=== PATIENT | male | born 1970 | race Caucasian/White ===

== ENCOUNTER 2017-01-01 18:41 | Emergency (ER) | payer BC ==
[2017-01-01 18:49] VITALS: BP 127/78
--- NOTE | 2017-01-01 19:14 | EDM.PDOC ---
ED HPI ENT - General Chief Complaint: ENT Problem Stated Complaint: SORE THROAT Time Seen by Provider: 01/01/17 18:54 Source of Information: Reports: Patient, RN notes reviewed - History of Present Illness INITIAL COMMENTS - FREE TEXT/NARRATIVE: onset of severe sore throat about 3 days ago, much worse today, painful to swallow. not congested. Occasional nonprod cough. No known fever. was ill with similar sx last week. - Related Data Allergies/ADRs: Allergies Allergy/AdvReac Type Severity Reaction Status Date / Time No Known Allergies Allergy Verified 01/01/17 18:50 Home Meds: Home Meds Cephalexin 500 mg PO Q6HR #30 capsule 01/01/17 [Rx] Hydrocodone/Acetaminophen [Arthur 5-325] 1 tab PO Q4HR PRN #10 tablet 01/01/17 [ Rx] Pantoprazole Sodium [Protonix] 20 mg PO ASDIRECTED PRN 01/01/17 [History] Past Medical History Gastrointestinal History: Reports: GERD Social & Family History - Tobacco Use Smoking Status *Q: Never Smoker - Caffeine Use Caffeine Use: Reports: Coffee, Soda - Recreational Drug Use Recreational Drug Use: No ED ROS ENT - Review of Systems Review Of Systems: See Below Constitutional: Denies: fever, chills HEENT: Reports: Throat pain. Denies: Rhinitis, Sinus problem Respiratory: Reports: Cough. Denies: Shortness of Breath, Sputum Cardiovascular: Denies: Chest pain GI/Abdominal: Denies: Abdominal pain, Nausea, Vomiting Musculoskeletal: Reports: no symptoms Skin: Reports: no symptoms Neurological: Reports: No Symptoms ED EXAM, ENT - Physical Exam Exam: See Below General Appearance: alert, mild distress Eye Exam: bilateral eye: PERRL Ears: normal external exam, normal TMs Nose: normal inspection Mouth/Throat: Pharyngeal erythema. No: Tonsillar exudates, Tonsillar swelling Head: No: facial swelling Neck: supple, full range of motion, lymphadenopathy (L), lymphadenopathy (R) Cardiovascular: regular rate, rhythm Extremities: normal inspection, normal range of motion Neurological: alert, oriented, no motor/sensory deficits Skin: Warm, Dry, Normal color Course - Vital Signs Last Recorded V/S: Last Vital Signs Temp 97.6 F 01/01/17 18:47 Pulse 79 01/01/17 18:47 Resp 20 01/01/17 18:47 BP 127/78 04/22/17 18:47 Pulse Ox 98 01/01/17 18:47 Departure - Departure Time of Disposition: 19:15 Disposition: Home, Self-Care 01 Condition: fair Clinical Impression: Strep throat Prescriptions: Hydrocodone/Acetaminophen [Arthur 5-325] 1 tab PO Q4HR PRN #10 tablet PRN Reason: Pain Cephalexin 500 mg PO Q6HR #30 capsule Referrals: Rebeca White TIMBER FALLER [Primary Care Provider] - Forms: ED Department Discharge Additional Instructions: cephalexin antibiotic as prescribed, tylenol or ibuprofen as needed during the day for discomfort, hydrocodone as needed for severe pain, do not drive or work when taking hydrocodone, follow up clinic as needed
== END 2017-01-01 19:27 | disposition home or self-care (01) ==
LOC: JD.ED 18:41
DX: J02.0 Streptococcal pharyngitis (principal); K21.9 Gastro-esophageal reflux disease without esophagitis
CPT/HCPCS: 99282; 99283

== ENCOUNTER 2017-07-07 21:18 | Emergency (ER) | payer BC ==
[2017-07-07 21:26] VITALS: BP 143/93
[2017-07-07] MEDS ORDERED: Acyclovir 200 MG Cap PO ONE (21:42)
[2017-07-07] MEDS ORDERED: Ketorolac 60 MG/2 ML SDV IM ONE (21:46)
--- NOTE | 2017-07-07 21:57 | EDM.PDOC ---
ED HPI GENERAL MEDICAL PROBLEM - General Chief Complaint: Skin Complaint Stated Complaint: Rash on head Time Seen by Provider: 07/07/17 21:20 Source of Information: Reports: Patient, RN Notes Reviewed History Limitations: Reports: No Limitations - History of Present Illness INITIAL COMMENTS - FREE TEXT/NARRATIVE: 47 year old male presents to the ED with complaints of neck stiffness and pain with associated rash to his scalp. Symptoms started last night and he describes his scalp as "on fire." He says his noted blistering on the left side of his head where he was experiencing pain. He has a history of psoriasis to his scalp but says this is different. His skin is sensitive to touch. He describes body aches but no fever or chills. No chest pain, abdominal pain, nausea, vomiting or diarrhea. He reports a headache with no vision changes, dizziness, change in speech, weakness in extremities. Head Pain Score (Numeric/FACES): 6 - Related Data Allergies Allergy/AdvReac Type Severity Reaction Status Date / Time No Known Allergies Allergy Verified 01/01/17 18:50 Home Meds: Home Meds Pantoprazole Sodium [Protonix] 20 mg PO ASDIRECTED PRN 01/01/17 [History] valACYclovir [Valtrex] 1,000 mg PO Q8H #28 tab 07/07/17 [Rx] Past Medical History Gastrointestinal History: Reports: GERD - Past Surgical History GI Surgical History: Reports: Hernia, Abdominal Other GI Surgeries/Procedures: repair of the hernia; anal fissure Social & Family History - Tobacco Use Smoking Status *Q: Never Smoker - Caffeine Use Caffeine Use: Reports: Coffee, Soda - Recreational Drug Use Recreational Drug Use: No ED ROS GENERAL - Review of Systems Review Of Systems: See Below Constitutional: Reports: Malaise. Denies: Fever, Chills HEENT: Reports: No Symptoms. Denies: Eye Discharge, Eye Pain, Sinus Problem, Vertigo, Vision Change Respiratory: Reports: No Symptoms. Denies: Shortness of Breath Cardiovascular: Reports: No Symptoms. Denies: Chest Pain GI/Abdominal: Reports: No Symptoms. Denies: Abdominal Pain, Diarrhea, Nausea, Vomiting Skin: Reports: Rash Neurological: Reports: Headache. Denies: Paresthesia, Trouble Speaking, Difficulty Walking, Weakness ED EXAM, SKIN/RASH Exam: See Below Exam Limited By: No Limitations General Appearance: Alert, WD/WN, Mild Distress Eye Exam: Bilateral Eye: EOMI, PERRL Ears: Normal External Exam, Normal Canal, Hearing Grossly Normal, Normal TMs Nose: Normal Inspection, Normal Mucosa Throat/Mouth: Normal Inspection, Normal Oropharynx, No Airway Compromise Head: Other (zoster type rash to left parietal region. The area is mildy swollen and is tender to light palpation. ) Neck: Normal Inspection, Supple, Non-Tender, Full Range of Motion, Tender Lateral (left side), Other (no nuchal rigidity. ). No: Lymphadenopathy (L), Lymphadenopathy (R), Tender Midline Respiratory/Chest: No Respiratory Distress, Lungs Clear, Normal Breath Sounds, No Accessory Muscle Use, Chest Non-Tender Cardiovascular: Regular Rate, Rhythm GI/Abdominal: Normal Bowel Sounds, Soft, Non-Tender Neurological: Alert, Oriented, Normal Cognition, Normal Gait, No Motor/Sensory Deficits Skin: Warm, Dry, Zoster-Like Rash (left parital region ) Course - Vital Signs Last Recorded V/S: Last Vital Signs Temp 97.1 F 07/07/17 21:25 Pulse 73 07/07/17 21:25 Resp 20 07/07/17 21:25 BP 143/93 H 07/07/17 21:25 Pulse Ox 97 07/07/17 21:25 - Orders/Labs/Meds Meds: Medications Discontinued Medications Generic Name Dose Route Start Last Admin Trade Name Freq PRN Reason Stop Dose Admin Acyclovir 1,000 mg 07/07/17 21:42 Zovirax PO 07/07/17 21:43 ONETIME ONE Acyclovir 800 mg 07/07/17 21:45 Zovirax PO 07/07/17 21:46 ONETIME ONE Ketorolac Tromethamine 60 mg 07/07/17 21:46 Toradol IM 07/07/17 21:47 ONETIME ONE Valacyclovir HCl 1,000 mg 07/07/17 21:58 Valtrex PO 07/07/17 21:59 ONETIME ONE - Re-Assessments/Exams Free Text/Narrative Re-Assessment/Exam: Discussed history and physical exam with Dr. Conteh who agrees with diagnosis of herpes zoster. Patient was given first dose of Valacyclovir in the ED as the pharmacies are closing. He will be started on 1000mg TID x7 days. Rx for Percocet 1-2 tabs every 4-6 hours PRN #20 and Zofran 4mg ODT every 8 hours as needed for nausea were [facility] the [facility]. I also faxed a prescription for topical zosters compound (Gabapentin 6%, Lidocaine 5%, clonidine 0.2%, and Deoxy -d-glucose 0.2%) to [facility]. Patient was instructed to f/u with his PCP Lyssa White next week for recheck. Departure - Departure Time of Disposition: 21:48 Disposition: Home, Self-Care 01 Condition: Good Clinical Impression: Shingles Qualifiers: Herpes zoster complications: without complications Qualified Code(s): B02.9 - Zoster without complications - Discharge Information Prescriptions: valACYclovir [Valtrex] 1,000 mg PO Q8H #28 tab Referrals: Rebeca White, ENGRAVER AUTOMATIC [Primary Care Provider] - Forms: ED Department Discharge Additional Instructions: Valacyclovir 1000mg every 8 hours for a total of 7 days Percocet 1-2 tabs every 4-6 hours as needed for pain No driving for at least 6-8 hours after taking Percocet. Topical cream from [facility] as directed. Order was faxed. Stop in tomorrow or they will call you. Zofran 4mg every 8 hours as needed for nausea Follow-up with your primary care provider next week
[2017-07-07] MEDS ORDERED: valACYclovir 1,000 MG Tab PO ONE (21:58)
[2017-07-07] MEDS ORDERED: valACYclovir 500 MG Tab ONE (22:16)
== END 2017-07-07 22:25 | disposition home or self-care (01) ==
LOC: JD.ED 21:18
DX: B02.9 Zoster without complications (principal)
CPT/HCPCS: 96372; 99282; A9270; J1885

== ENCOUNTER 2017-07-09 08:57 | Emergency (ER) | payer BC ==
[2017-07-09 09:09] VITALS: BP 127/95
[2017-07-09] MEDS ORDERED: Gabapentin 300 MG Cap PO ONE (09:25)
--- NOTE | 2017-07-09 09:36 | EDM.PDOC ---
ED HPI GENERAL MEDICAL PROBLEM - General Chief Complaint: Skin Complaint Stated Complaint: DX OF SHINGLES - GETTING WORSE Time Seen by Provider: 07/09/17 09:07 Source of Information: Reports: Patient, Old Records, RN Notes Reviewed History Limitations: Reports: No Limitations - History of Present Illness INITIAL COMMENTS - FREE TEXT/NARRATIVE: The patient states that he developed pain to his posterior left neck and scalp Tuesday night, 07/06/2017. He developed a vesicular rash shortly thereafter. He was seen in this ED the following evening, 07/07/2017, and diagnosed with herpes zoster. He was started on valacyclovir (and, according to the medical records, acyclovir), then discharged home with prescriptions for valacyclovir 1 g TID x 7 d. Prescriptions for Percocet #20 and Zofran 4 mg ODT per [facility] were given. A prescription for topical zosters compound (gabapentin 6%, lidocaine 5%, clonidine 0.2%, and [id number] 0.2%) was faxed to [facility]. The patient was instructed to follow-up with his PCP, Rebeca White, this coming week. The patient now returns because of left eye pain. He states that the Percocet and topical zoster compound have not helped his pain, and he is concerned that his left eye may be affected. He states that the pain is bad enough that he cannot sleep. He states that he expects to follow-up with Rebeca White on 07/11/2017. Left Head Pain Score (Numeric/FACES): 7 - Related Data Allergies Allergy/AdvReac Type Severity Reaction Status Date / Time No Known Allergies Allergy Verified 07/09/17 09:02 Home Meds: Home Meds Pantoprazole Sodium [Protonix] 20 mg PO ASDIRECTED PRN 01/01/17 [History] valACYclovir [Valtrex] 1,000 mg PO Q8H #28 tab 07/07/17 [Rx] Gabapentin [Neurontin] 300 mg PO ASDIRECTED #11 cap 07/09/17 [Rx] Zolpidem Tartrate [Ambien Cr] 12.5 mg PO BEDTIME PRN #3 tab.mphase 07/09/17 [Rx] oxyCODONE HCl/Acetaminophen [Percocet 5-325 mg Tablet] 1 tab PO ASDIRECTED 07/09 [History] Past Medical History Other HEENT History: wears glasses for reading Gastrointestinal History: Reports: GERD - Infectious Disease History Infectious Disease History: Reports: Chicken Pox, Shingles - Past Surgical History HEENT Surgical History: Reports: Oral Surgery ([place] teeth extraction) GI Surgical History: Reports: Hernia, Abdominal (umbilical), Other (See Below) ( Anal fissure repair) Musculoskeletal Surgical History: Reports: ORIF (right forearm, bilateral ankles ) Social & Family History - Tobacco Use Smoking Status *Q: Never Smoker Second Hand Smoke Exposure: No - Caffeine Use Caffeine Use: Reports: Coffee, Soda - Alcohol Use Alcohol Use History: Yes Alcohol Use Frequency: Rarely - Recreational Drug Use Recreational Drug Use: No - Living Situation & Occupation Living situation: Reports: , with Spouse, with Family (3 kids) 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) ED ROS GENERAL - Review of Systems Review Of Systems: See Below Constitutional: Reports: No Symptoms HEENT: Reports: No Symptoms Respiratory: Reports: No Symptoms Cardiovascular: Reports: No Symptoms Endocrine: Reports: No Symptoms GI/Abdominal: Reports: No Symptoms : Reports: No Symptoms Musculoskeletal: Reports: No Symptoms Skin: Reports: No Symptoms Neurological: Reports: No Symptoms Psychiatric: Reports: No Symptoms Hematologic/Lymphatic: Reports: No Symptoms Immunologic: Reports: No Symptoms ED EXAM, SKIN/RASH Exam: See Below Exam Limited By: No Limitations General Appearance: Alert, WD/WN, Mild Distress (Appears uncomfortable) Eye Exam: Bilateral Eye: EOMI, Normal Inspection, PERRL Ears: Normal External Exam, Hearing Grossly Normal Nose: Normal Inspection, No Blood Throat/Mouth: Normal Inspection, Normal Lips, Normal Voice, No Airway Compromise Head: Atraumatic, Other (Vesicular rash involving the left occipital nerve distribution only. There is no extension into the left ophthalmic nerve distribution.) Neck: Supple, Full Range of Motion Course - Vital Signs Last Recorded V/S: Last Vital Signs Temp 36.2 C 07/09/17 09:04 Pulse 61 07/09/17 09:04 Resp 12 07/09/17 09:04 BP 127/95 H 07/09/17 09:04 Pulse Ox 99 07/09/17 09:04 - Orders/Labs/Meds Meds: Medications Discontinued Medications Generic Name Dose Route Start Last Admin Trade Name Freq PRN Reason Stop Dose Admin Gabapentin 300 mg 07/09/17 09:25 07/09/17 09:53 Neurontin PO 07/09/17 09:26 300 mg ONETIME ONE Administration - Re-Assessments/Exams Free Text/Narrative Re-Assessment/Exam: 07/09/17 09:26 The patient appears to have herpes zoster affecting his left occipital nerve distribution, and while he is complaining of left eye pain, there does not appear to be any involvement of the opthalmic branch of the trigeminal nerve, therefore the patient is not at risk for herpes zoster ophthalmicus. When seen on 07/07/2017, the patient was prescribed valacyclovir 1 g TID x 7 days, Percocet, Zofran, and topical zoster compound, which includes gabapentin, lidocaine, clonidine, and [id number]. While oral valacyclovir is the mainstay of treatment, the topical zoster compound has not been shown to be of benefit. Instead, I would recommend the patient be on oral gabapentin. I will start him on 300 mg today, and prescribed 300 BID tomorrow, then 300 TID thereafter. I can prescribe the patient additional Percocet, however, as the patient has already discovered, opioids generally do not treat neuropathic pain well. In addition, the patient requested something for sleep. I will prescribe some Ambien XR. The patient will be following up with his PCP, Rebeca White, on Tuesday, 2016. Departure - Departure Time of Disposition: 09:36 Disposition: Home, Self-Care 01 Condition: Good Clinical Impression: Herpes zoster Qualifiers: Herpes zoster complications: without complications Qualified Code(s): B02.9 - Zoster without complications - Discharge Information Prescriptions: Gabapentin [Neurontin] 300 mg PO ASDIRECTED #11 cap Zolpidem Tartrate [Ambien Cr] 12.5 mg PO BEDTIME PRN #3 tab.mphase PRN Reason: Insomnia Instructions: Shingles, [id number] Referrals: Rebeca White APPLICATION PERFORMANCE ENGINEER [Primary Care Provider] - Forms: ED Department Discharge Additional Instructions: You were seen in the emergency room for pain in your left eye associated with left-sided scalp shingles. Your shingles involves your left occipital nerve, not the ophthalmic branch of the trigeminal nerve, which would affect your eye. You have been started on the nerve-pain medicine gabapentin. You only take the one dose today, but take one tablet twice a day tomorrow, 07/10/2017, then 1 tablet 3 times a day starting on 07/11/2017. You have been prescribed the sleep medicine Ambien CR. Take one tablet at bedtime, as needed for insomnia. Be aware that you may still be groggy in the morning, and should not drive until you are feeling fully refreshed. Follow-up with your PCP, Rebeca White, at the next available appointment. If any other problems, please do not hesitate to return to the ER.
== END 2017-07-09 10:10 | disposition home or self-care (01) ==
LOC: JD.ED 08:57
DX: B02.9 Zoster without complications (principal); K21.9 Gastro-esophageal reflux disease without esophagitis; Z98.890 Other specified postprocedural states
CPT/HCPCS: 99284; A9270; 99283

== ENCOUNTER 2018-11-18 10:30 | Emergency (ER) | payer BC ==
[2018-11-18 10:41] VITALS: BP 115/86
--- NOTE | 2018-11-18 11:09 | EDM.PDOC ---
ED HPI GENERAL MEDICAL PROBLEM - General Chief Complaint: Upper Extremity Injury/Pain Stated Complaint: LT ARM INJURY Time Seen by Provider: 11/18/18 11:06 Source of Information: Reports: Patient, RN Notes Reviewed History Limitations: Reports: No Limitations - History of Present Illness INITIAL COMMENTS - FREE TEXT/NARRATIVE: Patient is a 48-year-old male who presents to the ED today for the evaluation of a left arm injury. He states he was at a local high school sporting event when he was at the top of the bleachers and tripped on the bleachers, because a garbage can was in the way and he took a fall. He states that his left arm was outstretched behind him and got caught and the bleacher railing. His pain is mostly in his upper left forearm and it is aggravated by supination/pronation and lateral hand movement. He can still make a fist but there is pain in that area when he does this. He would rate his pain at an 8 out of 10. He denies any numbness or tingling in this arm, he further denies any pain into his left shoulder. He states that he did not take any pain medications for this as the accident happened directly before coming to ED. He denies hitting his head or any loss of consciousness. He denies pain anywhere else in his body, due to the fall. Left Lower Arm Pain Score (Numeric/FACES): 8 - Related Data Allergies Allergy/AdvReac Type Severity Reaction Status Date / Time No Known Allergies Allergy Verified 07/09/17 09:02 Home Meds: Home Meds Pantoprazole Sodium [Protonix] 20 mg PO ASDIRECTED 01/01/17 [History] Naproxen [Naprosyn] 500 mg PO Q12HR #30 tab 11/18/18 [Rx] Past Medical History Other HEENT History: wears glasses for reading Gastrointestinal History: Reports: GERD - Infectious Disease History Infectious Disease History: Reports: Chicken Pox, Shingles - Past Surgical History HEENT Surgical History: Reports: Oral Surgery ([place] teeth extraction) GI Surgical History: Reports: Hernia, Abdominal (umbilical), Other (See Below) ( Anal fissure repair) Musculoskeletal Surgical History: Reports: ORIF (right forearm, bilateral ankles ) Social & Family History - Tobacco Use Smoking Status *Q: Never Smoker - Caffeine Use Caffeine Use: Reports: Coffee - Recreational Drug Use Recreational Drug Use: No - Living Situation & Occupation Living situation: Reports: , with Spouse, with Family (3 kids) 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 Denies: Joint Pain, Joint Swelling Skin: Reports: No Symptoms Neurological: Denies: Numbness, Tingling Psychiatric: Reports: No Symptoms ED EXAM, GENERAL - Physical Exam Exam: See Below Exam Limited By: No Limitations General Appearance: Alert, WD/WN, No Apparent Distress Eye Exam: Bilateral Eye: EOMI, Normal Inspection, PERRL Ears: Normal External Exam Nose: Normal Inspection Throat/Mouth: Normal Inspection, Normal Oropharynx, No Airway Compromise Head: Atraumatic, Normocephalic Neck: Normal Inspection, Supple, Non-Tender, Full Range of Motion Respiratory/Chest: No Respiratory Distress, Lungs Clear, Normal Breath Sounds, No Accessory Muscle Use, Chest Non-Tender Cardiovascular: Normal Peripheral Pulses, Regular Rate, Rhythm, No Murmur GI/Abdominal: Normal Bowel Sounds, Soft, Non-Tender, No Distention, No Mass Back Exam: Normal Inspection Extremities: Normal Inspection, Normal Range of Motion (Normal range of motion, however there is pain with supination and lateral hand movement.), Normal Capillary Refill, Other (Muscle strength is slightly decreased on the left side due to pain in the left upper forearm.). No: Joint Swelling, Pallor Neurological: Alert, Oriented, Normal Cognition, No Motor/Sensory Deficits Psychiatric: Normal Affect, Normal Mood Skin Exam: Warm, Dry, Intact, Normal Color, No Rash Course - Vital Signs Last Recorded V/S: Last Vital Signs Temp 97.1 F 11/18/18 10:37 Pulse 86 11/18/18 10:37 Resp 18 11/18/18 10:37 BP 115/86 11/18/18 10:37 Pulse Ox 96 11/18/18 10:37 - Orders/Labs/Meds Orders: Active Orders 24 hr Category Date Time Status Forearm 2V Lt [CR] Stat Exams 11/18/18 11:17 Ordered Meds: Medications Discontinued Medications Generic Name Dose Route Start Last Admin Trade Name Preeti PRN Reason Stop Dose Admin Ketorolac Tromethamine 30 mg 11/18/18 11:16 11/18/18 11:35 Toradol IM 11/18/18 11:17 30 mg ONETIME ONE Administration - Re-Assessments/Exams Free Text/Narrative Re-Assessment/Exam: 11/18/18 11:40 Patient presents to the ED for the evaluation of a left forearm injury. I did order a left forearm x-ray to make sure that there was no broken bones, however I feel that he may have just strained a flexor/extensor muscle in his forearm. As most of his pain is with making a fist or supinating and pronating his arm. 11/18/18 12:23 Forearm x-ray is complete and does not demonstrate any acute sign of any bony fracture, official radiology read is pending. I do feel safe discharging the patient home at this time, I did give him return precautions and general recommendations. Departure - Departure Time of Disposition: 12:19 Disposition: Home, Self-Care 01 Condition: Fair Clinical Impression: Muscle strain of left forearm Qualifiers: Encounter type: initial encounter Qualified Code(s): S56.912A - Strain of unspecified muscles, fascia and tendons at forearm level, left arm, initial encounter - Discharge Information *PRESCRIPTION DRUG MONITORING PROGRAM REVIEWED*: No *COPY OF PRESCRIPTION DRUG MONITORING REPORT IN PATIENT MELINA: No Prescriptions: Naproxen [Naprosyn] 500 mg PO Q12HR #30 tab Instructions: Muscle Strain, [id number] Referrals: Rebeca White SWATCH CUTTER [Primary Care Provider] - Forms: ED Department Discharge Additional Instructions: You have been evaluated in the ED for your left forearm pain. Your x-ray demonstrated no acute fracture of your left forearm. Please use ice/heat as tolerated to the affected area. Please take the Naprosyn 500 mg every 12 hours as needed for pain, you may take Tylenol 500 mg or ibuprofen 600 mg every 6 hours as needed for pain if the Naprosyn does not relief your pain completely. Please do not take over 4000 mg Tylenol or 3200 mg ibuprofen in 24 hour time period. Please return to ED if your symptoms should change or worsen. - My Orders Last 24 Hours: My Active Orders 11/18/18 11:17 Forearm 2V Lt [CR] Stat - Assessment/Plan Last 24 Hours: My Active Orders 11/18/18 11:17 Forearm 2V Lt [CR] Stat
[2018-11-18] MEDS ORDERED: Ketorolac 30 MG/ML SDV IM ONE (11:16)
--- NOTE | 2018-11-20 08:14 | CR ---
Left forearm: Two views of the left forearm were obtained. Comparison: No previous forearm exam. No fracture or other abnormality is appreciated. Impression: 1. No bony abnormality is appreciated on left forearm study. Diagnostic code #1
== END 2018-11-18 12:30 | disposition home or self-care (01) ==
LOC: JD.ED 10:30
DX: S56.912A Strain of unspecified muscles, fascia and tendons at forearm level, left arm, initial encounter (principal); W01.0XXA Fall on same level from slipping, tripping and stumbling without subsequent striking against object, initial encounter; Y92.219 Unspecified school as the place of occurrence of the external cause
CPT/HCPCS: 73090; 99283; J1885

== ENCOUNTER 2022-08-23 07:37 | Day surgery (SDC) | payer BC ==
[~2022-08-23 07:37] MED LIST: Lactated Ringers 1,000 ML IV SCH; Lidocaine 1%/Sod Bicarbonate in NS 8.4% 1 ML Syringe IDERM PRN; Sodium Chloride 0.9% 10 ML Syringe FLUSH PRN; Sodium Chloride 0.9% 10 ML Syringe FLUSH SCH
[2022-08-23] MEDS ORDERED: Lidocaine 1% 4 ML ONE (08:49)
[2022-08-23] MEDS ORDERED: Propofol 200 MG/20 ML SDV ONE ×2 (08:50→08:51)
[2022-08-23 11:11] VITALS: BP 115/80; PULSE 60
== END 2022-08-23 10:22 | disposition home or self-care (01) ==
LOC: JD.SDS 07:37
PROVIDERS: ATTEND Surgery
DX: K21.00 Gastro-esophageal reflux disease with esophagitis, without bleeding (principal); K29.60 Other gastritis without bleeding; E66.9 Obesity, unspecified; G47.9 Sleep disorder, unspecified; F41.9 Anxiety disorder, unspecified; M48.02 Spinal stenosis, cervical region; M47.12 Other spondylosis with myelopathy, cervical region; Z79.899 Other long term (current) drug therapy; Z98.890 Other specified postprocedural states; Z68.32 Body mass index [BMI] 32.0-32.9, adult; Z88.4 Allergy status to anesthetic agent
CPT/HCPCS: 43239; J2704; J7120

== ENCOUNTER 2023-02-16 14:19 | Emergency (ER) | payer BC ==
[2023-02-16 19:51] VITALS: BP 122/71; PULSE 71
== END 2023-02-16 17:08 | disposition home or self-care (01) ==
LOC: JD.ED 14:19
DX: H53.8 Other visual disturbances (principal); K21.9 Gastro-esophageal reflux disease without esophagitis; E66.9 Obesity, unspecified; Z68.35 Body mass index [BMI] 35.0-35.9, adult; Z79.899 Other long term (current) drug therapy
CPT/HCPCS: 36415; 99195; 99282; 99284

== ENCOUNTER 2023-03-01 01:57 | Emergency (ER) | payer BC ==
[2023-03-01 03:06] LABS: BASE EXCESS VENOUS -1.2 (-4.0-2.0); BICARBONATE,VENOUS 22.3 meq/L (22-26); O2 SATURATION VENOUS 95.1; PCO2 VENOUS 35.3 mmHg (41-51); PH,VENOUS 7.42 (7.30-7.40)
[2023-03-01 03:12] LABS: HEMATOCRIT 44.2 % (40.1-51.0); MEAN CORPUSCULAR HEMOGLOBIN 28.9 pg (25.7-32.2); MEAN CORPUSCULAR HGB CONC 34.2 g/dl (32.2-35.5); MEAN CORPUSCULAR VOLUME 84.7 fl (79.0-92.2); PLATELET COUNT,PLT 218 K/mm3 (163-337); RED BLOOD CELL COUNT 5.22 M/mm3 (4.63-6.08); WHITE BLOOD CELL COUNT,WBC 3.85 K/mm3 (4.23-9.07)
[2023-03-01 03:35] LABS: INR 0.97; PROTHROMBIN TIME 10.4 SECONDS (9.7-12.0)
[2023-03-01 03:36] LABS: D-DIMER QUANTITATIVE 0.29 mg/L (0.19-0.50)
[2023-03-01 03:37] LABS: PTT,PARTIAL THROMBOPLSTIN TIME 28.8 SECONDS (21.7-31.4)
[2023-03-01 03:45] LABS: LACTIC ACID 0.7 mmol/L (0.4-2.0)
[2023-03-01 03:46] LABS: HEMOGLOBIN 15.1 gm/dl (13.7-17.5)
[2023-03-01 03:48] LABS: ALBUMIN 3.4 g/dl (3.4-5.0); ANION GAP 13.9 (5-15); BILIRUBIN TOTAL 0.2 mg/dL (0.2-1.0); CALCIUM 8.4 mg/dL (8.5-10.1); EST CRCL DRUG DOSING (CG) 93.08 mL/min; POTASSIUM,K 3.9 mEq/L (3.5-5.1); PROTEIN TOTAL,TP 6.7 g/dl (6.4-8.2)
[2023-03-01 03:59] LABS: CORONAVIRUS COVID-19 NAA NEGATIVE (NEGATIVE); INFLUENZA A NAA NEGATIVE (NEGATIVE); RESPIRATORY SYNCYTIAL VIR NAA NEGATIVE (NEGATIVE)
[2023-03-01 04:11] LABS: BAND PERCENT MAN 0 % (0-10); BASOPHILS PERCENT MAN 2 (0.2-1.2); EOSINOPHILS PERCENT MAN 0 % (0.8-7.0); LYMPHOCYTES % ATYPICAL MANUAL 0 %; LYMPHOCYTES PERCENT MAN 42 % (20-40); MONOCYTES PERCENT MAN 18 % (2-10)
[2023-03-01 04:12] LABS: PLATELET COUNT ESTIMATE ADEQUATE
[2023-03-01 04:33] VITALS: BP 120/78; PULSE 66
== END 2023-03-01 04:32 | disposition home or self-care (01) ==
LOC: JD.ED 01:57
DX: F45.8 Other somatoform disorders (principal); K21.9 Gastro-esophageal reflux disease without esophagitis; E66.9 Obesity, unspecified; Z79.899 Other long term (current) drug therapy; Z20.822 Contact with and (suspected) exposure to COVID-19; Z68.34 Body mass index [BMI] 34.0-34.9, adult
CPT/HCPCS: 0241U; 36415; 71046; 80053; 82803; 83605; 83880; 84484; 85007; 85027; 85379; 85610; 85730; 87040; 93005; 99284; 93010; 99283

== ENCOUNTER 2023-09-08 14:59 | Emergency (ER) | payer OTHER, BC ==
[2023-09-08 15:06] VITALS: BP 120/108; PULSE 93
[2023-09-08] MEDS ORDERED: Cyclobenzaprine 10 MG Tab PO ONE (15:22)
== END 2023-09-08 16:11 | disposition home or self-care (01) ==
LOC: JD.ED 14:59
DX: M54.50 Low back pain, unspecified (principal); M54.6 Pain in thoracic spine; K21.9 Gastro-esophageal reflux disease without esophagitis; E66.9 Obesity, unspecified; Z68.34 Body mass index [BMI] 34.0-34.9, adult; Z79.899 Other long term (current) drug therapy; V89.2XXA Person injured in unspecified motor-vehicle accident, traffic, initial encounter
CPT/HCPCS: 72072; 72100; 99283; A9270